=== PATIENT | male | born 1965 ===

== ENCOUNTER 2018-11-18 11:58 | Emergency (ER) | payer OTHER ==
[2018-11-18] MEDS: fentaNYL (PF) 50 MCG/ML 2 ML AMP IVP PRN ×3 (12:11→14:47)
--- NOTE | 2018-11-18 12:29 | ED ---
General Adult HPI - General Chief complaint: Fall Stated complaint: Fall-[facility] Time Seen by Provider: 11/18/18 12:05 Source: patient, EMS, RN notes reviewed, old records reviewed Mode of arrival: EMS Limitations: physical limitation - History of Present Illness Initial comments: 53-year-old male presents status post fall with head injury and mid back injury. Patient was in a elevated left, approximately 12 feet off the ground, fell striking his mid back and head. There was no loss consciousness. His main complaint is mid upper back pain. Denies anterior or substernal chest pain. Denies abdominal pain. He did denies any pain or decreased sensation in the lower extremities. Denies significant headache. He has no past medical history, not on any anticoagulation. - Related Data Home Medications Medication Instructions Recorded Confirmed No Known Home Medications 11/18/18 11/18/18 Allergies Allergy/AdvReac Type Severity Reaction Status Date / Time No Known Allergies Allergy Verified 11/18/18 14:03 Review of Systems ROS Statement: Those systems with pertinent positive or pertinent negative responses have been documented in the HPI. ROS Other: All systems not noted in ROS Statement are negative. Past Medical History History of Any Multi-Drug Resistant Organisms: None Reported Past Psychological History: No Psychological Hx Reported Smoking Status: Never smoker Past Alcohol Use History: None Reported Past Drug Use History: None Reported General Exam Limitations: physical limitation General appearance: alert, in no apparent distress Head exam: Absent: atraumatic Eye exam: Present: normal appearance, PERRL ENT exam: Present: normal exam Neck exam: Present: other (Cervical collar in place) Respiratory exam: Present: normal lung sounds bilaterally, chest wall tenderness (Posterior left sided thoracic tenderness to palpation.). Absent: respiratory distress Cardiovascular Exam: Present: regular rate, normal rhythm GI/Abdominal exam: Present: soft. Absent: distended, tenderness, guarding Extremities exam: Present: normal inspection, normal capillary refill. Absent: tenderness, pedal edema, joint swelling Back exam: Present: paraspinal tenderness, vertebral tenderness (6 spine, tenderness to palpation both paraspinal and spinal.) Neurological exam: Present: alert, oriented X3, CN II-XII intact. Absent: motor sensory deficit Psychiatric exam: Present: normal affect, normal mood Skin exam: Present: warm, dry. Absent: cyanosis, diaphoretic, erythema Course Vital Signs 0611/18/18 11/18/18 12:01 12:30 14:34 Temperature 98.7 F 98.5 F Pulse Rate 70 58 L 86 Respiratory 19 18 16 Rate Blood Pressure 137/94 131/90 131/88 O2 Sat by Pulse 94 L 94 L 97 Oximetry EKG Findings - EKG Comments: EKG Findings:: EKG: Normal sinus rhythm, poor baseline with artifact, no definitive signs of ischemia, rate of 65, UT interval 132, QRS duration 80, QTC 444, no ST segment elevation. Procedures - Laceration Laceration #1 Consent Obtained: verbal consent Indication: laceration Site: scalp Description: linear Pre-repair: wound explored, irrigated extensively Type of Sutures: other (Carie) Number of Sutures: 6 Technique: simple, interrupted Patient Tolerated Procedure: well Medical Decision Making - Medical Decision Making 53-year-old male status post fall. Patient fell from approximately 12 feet. He was transported c-collar. His main complaint is mid back pain. He has tenderness palpation across the thoracic region both paraspinal and spinal. He has no neurologic deficits below this level. He has good bread dough mixer strength bilaterally, he is moving his feet symmetrically, normal sensation. He is maintained in a c-collar. He is taken immediately to computed tomography scan for CT of brain and C-spine as well as CT chest and pelvis. This was obtained after preliminary single view chest and pelvis. Head CT negative for intracranial hemorrhage. CT cervical spine is negative for fracture s ubluxation. Spinal CT at the thoracic level shows compression fractures T5 6 and T11 as well as transverse process fractures at this level. He has both nondisplaced and displaced rib fractures with underlying bilateral pulmonary contusion. Ribs 2 through 6 on the left. No pneumothorax. Left mid clavicular fracture. Contusion is quite significant and CHEST CT. Patient does have a nondisplaced bilateral scapular fractures. Case is discussed with trauma surgeon Dr. Brenner, we did decide at this time patient is appropriate for transfer for higher level of care. Will require monitored bed or ICU. Will require bolus trauma and spinal surgery evaluation. Case discussed with Dr. Herminia Mcclendon, will accept transfer. - Lab Data Result diagrams: 11/18/18 12:21 11/18/18 12:21 Lab Results 11/18/18 11/18/18 11/18/18 Range/Units 12:19 12:21 12:21 WBC 12.9 H (3.8-10.6) k/uL RBC 5.03 (4.30-5.90) m/uL Hgb 14.8 (13.0-17.5) gm/dL Hct 45.3 (39.0-53.0) % MCV 90.1 (80.0-100.0) fL MCH 29.5 (25.0-35.0) pg MCHC 32.7 (31.0-37.0) g/dL RDW 12.7 (11.5-15.5) % Plt Count 379 (150-450) k/uL Neutrophils % 69 % Lymphocytes % 24 % Monocytes % 5 % Eosinophils % 0 % Basophils % 0 % Neutrophils # 9.0 H (1.3-7.7) k/uL Lymphocytes # 3.1 (1.0-4.8) k/uL Monocytes # 0.6 (0-1.0) k/uL Eosinophils # 0.1 (0-0.7) k/uL Basophils # 0.0 (0-0.2) k/uL PT (9.0-12.0) sec INR (<1.2) APTT (22.0-30.0) sec Sodium 141 (137-145) mmol/L Potassium 4.3 (3.5-5.1) mmol/L Chloride 107 (98-107) mmol/L Carbon Dioxide 24 (22-30) mmol/L Anion Gap 10 mmol/L BUN 18 (9-20) mg/dL Creatinine 0.82 (0.66-1.25) mg/dL Est GFR (CKD-EPI)AfAm >90 (>60 ml/min/1.73 sqM) Est GFR (CKD-EPI)NonAf >90 (>60 ml/min/1.73 sqM) Glucose 129 H (74-99) mg/dL Calcium 9.4 (8.4-10.2) mg/dL Total Bilirubin 0.5 (0.2-1.3) mg/dL AST 52 (17-59) U/L ALT 40 (21-72) U/L Alkaline Phosphatase 85 (38-126) U/L Total Protein 7.3 (6.3-8.2) g/dL Albumin 4.4 (3.5-5.0) g/dL Serum Alcohol mg/dL Blood Type Blood Type Confirm A Positive Blood Type Recheck Antibody Screen Spec Expiration Date 11/18/18 11/18/18 11/18/18 Range/Units 12:21 12:21 13:29 WBC (3.8-10.6) k/uL RBC (4.30-5.90) m/uL Hgb (13.0-17.5) gm/dL Hct (39.0-53.0) % MCV (80.0-100.0) fL MCH (25.0-35.0) pg MCHC (31.0-37.0) g/dL RDW (11.5-15.5) % Plt Count (150-450) k/uL Neutrophils % % Lymphocytes % % Monocytes % % Eosinophils % % Basophils % % Neutrophils # (1.3-7.7) k/uL Lymphocytes # (1.0-4.8) k/uL Monocytes # (0-1.0) k/uL Eosinophils # (0-0.7) k/uL Basophils # (0-0.2) k/uL PT 9.7 (9.0-12.0) sec INR 0.9 (<1.2) APTT 21.1 L (22.0-30.0) sec Sodium (137-145) mmol/L Potassium (3.5-5.1) mmol/L Chloride (98-107) mmol/L Carbon Dioxide (22-30) mmol/L Anion Gap mmol/L BUN (9-20) mg/dL Creatinine (0.66-1.25) mg/dL Est GFR (CKD-EPI)AfAm (>60 ml/min/1.73 sqM) Est GFR (CKD-EPI)NonAf (>60 ml/min/1.73 sqM) Glucose (74-99) mg/dL Calcium (8.4-10.2) mg/dL Total Bilirubin (0.2-1.3) mg/dL AST (17-59) U/L ALT (21-72) U/L Alkaline Phosphatase (38-126) U/L Total Protein (6.3-8.2) g/dL Albumin (3.5-5.0) g/dL Serum Alcohol <10 mg/dL Blood Type A Positive Blood Type Confirm Blood Type Recheck CABO Indicated Antibody Screen NEGATIVE Spec Expiration Date 11/21/2018 - 4616 Critical Care Time Critical Care Time: Yes Total Critical Care Time: 45 Disposition Clinical Impression: Fall, Fracture, ribs, Thoracic spine fracture, Scapular fracture, Pulmonary contusion, Scalp laceration Disposition: OTHER INSTITUTION NOT DEFINED Condition: Serious Is patient prescribed a controlled substance at d/c from ED?: No Referrals: None,Stated [Primary Care Provider] - 1-2 days Time of Disposition: 14:17 - Out of Hospital Transfer - Req. Specs Out of Hospital Transfer - Requested Specifics: Other Emergency Center (Transferred to [facility])
[2018-11-18] MEDS ORDERED: DIPH,PERTUS(ACELL)TETVAC-LF 0.5 ML VIAL IM ONE (12:33)
[2018-11-18 12:36] LABS: Basophils % (A) 0 %; Eosinophils # (A) 0.1 k/uL (0-0.7); Eosinophils % (A) 0 %; HCT 45.3 % (39.0-53.0); HGB 14.8 gm/dL (13.0-17.5); Lymphocytes # (A) 3.1 k/uL (1.0-4.8); Lymphocytes % (A) 24 %; MCH 29.5 pg (25.0-35.0); MCHC 32.7 g/dL (31.0-37.0); MCV 90.1 fL (80.0-100.0); Mean Platelet Volume 7.1; Monocytes # (A) 0.6 k/uL (0-1.0); Monocytes % (A) 5 %; Neutrophils % (A) 69 %; Platelet Count 379 k/uL (150-450); RBC 5.03 m/uL (4.30-5.90); RDW 12.7 % (11.5-15.5); WBC 12.9 k/uL (3.8-10.6)
[2018-11-18 12:55] LABS: ALT 40 U/L (21-72); AST 52 U/L (17-59); African American GFR (CKD) >90 (>60 ml/min/1.73 sqM); Albumin 4.4 g/dL (3.5-5.0); Alkaline Phosphatase 85 U/L (38-126); Anion Gap 10 mmol/L; Blood Urea Nitrogen 18 mg/dL (9-20); Calcium 9.4 mg/dL (8.4-10.2); Carbon Dioxide 24 mmol/L (22-30); Chloride 107 mmol/L (98-107); Glucose 129 mg/dL (74-99); INR 0.9 (<1.2); Prothrombin Time 9.7 sec (9.0-12.0); Sodium 141 mmol/L (137-145); Total Bilirubin 0.5 mg/dL (0.2-1.3); Total Protein 7.3 g/dL (6.3-8.2)
[2018-11-18 12:59] LABS: Potassium 4.3 mmol/L (3.5-5.1)
[2018-11-18 13:00] LABS: Partial Thromboplastin Time 21.1 sec (22.0-30.0)
--- NOTE | 2018-11-18 13:10 | CT ---
EXAMINATION TYPE: CT brain man alcaraz DATE OF EXAM: 11/18/2018 COMPARISON: None HISTORY: 8 foot fall, posterior head injury and back injury. CT DLP: [address] of the brain was performed. The ventricles, basal cisterns and sulci overlying the cerebral convexities demonstrate enlargement. There is no evidence for intracranial hemorrhage or sulcal effacement. There is decreased attenuatio n about the periventricular white matter and deep white matter of both cerebral hemispheres, compatib le with chronic small vessel ischemia. No mass effects are seen. If symptoms persist consider MRI. Osseous calvarium is intact. IMPRESSION: 1. Age related atrophic and chronic small vessel ischemic change without acute intracranial process seen at this time. CT Cervical Spine: Unenhanced CT of the cervical spine was performed with bone and soft tissue window settings submitted . Coronal and sagittal reconstruction is obtained. There is normal alignment and prevertebral soft tissues. No evidence for acute cervical fracture . Scattered degenerative disc disease and spondylosis. Biapical scarring. IMPRESSION: 1. No evidence for acute fracture or subluxation of the cervical spine.
--- NOTE | 2018-11-18 13:17 | XR ---
EXAMINATION TYPE: XR chest 1V portable DATE OF EXAM: 11/18/2018 Comparison: None Clinical History: trauma Findings: Fractures with variable displacement of the one shafts width of the left lateral second through sixth ribs. Heart border line enlarged. Diffuse interstitial and patchy densities throughout the lungs. No pneumothorax or pleural effusion seen. Mildly displaced left midclavicular shaft fracture. Impression: 1. Variably displaced fractures of the left lateral second through sixth ribs with displacement of up to 1 shaft's width. 2. Mildly displaced left midclavicular shaft fracture. 3. Diffuse interstitial and patchy airspace opacities throughout the lungs. Correlate for possible et iologies such as noncardiogenic pulmonary edema, diffuse aspiration, diffuse pulmonary contusions.
--- NOTE | 2018-11-18 13:18 | XR ---
EXAMINATION TYPE: XR pelvis AP view DATE OF EXAM: 11/18/2018 COMPARISON: NONE HISTORY: 53-year-old male trauma and pain after fall FINDINGS: SI joints appear symmetric and intact as does the pubic symphysis. No acute fracture, subluxation, or dislocation seen. Bilateral L5 pars defects seen on CT of the same day. IMPRESSION: Bilateral L5 pars defect seen on CT of the same day. Otherwise, no acute osseous abnormality seen.
--- NOTE | 2018-11-18 13:24 | CT ---
EXAMINATION TYPE: CT ChestAbdPelvis w con DATE OF EXAM: 11/18/2018 COMPARISON: None HISTORY: 8 foot fall, posterior head injury and back injury. CT DLP: 603.7 mGycm CONTRAST: Contrast enhanced Trauma CT of the Chest, Abdomen and Pelvis is performed with IV Contrast, patient i njected with 100 mL of Isovue 300. Chest: LUNGS: There is no evidence for pneumothorax. Groundglass infiltrates are seen throughout both lung f ields which could reflect early contusive change. MEDIASTINUM: Thoracic aorta is of normal caliber w ithout CT evidence to suggest traumatic induced aortic injury. No mediastinal fluid or blood. No pe ricardial fluid or cardia abnormality. HILAR STRUCTURES: No evidence for mass. No hilar adenopathy is appreciated. OTHER: No significant abnormality. OSSEOUS: Fractures of the lateral rib 2. Mildly comminuted fractures of left ribs 3, 4, 5 and 6 later ally. Virtually nondisplaced fracture right rib #5. Adjacent pleural thickening. Left scapular fractu re noted involving its body. Fracture of the right scapular body as well. Please see separate thoraci c spine report. CT ABDOMEN AND PELVIS FINDINGS: LIVER/GB: No focal laceration, contusion or subcapsular hemorrhage. No calcified gallstones. No s pace occupying hepatic lesion. Biliary tree is of normal caliber. PANCREAS: No evidence for transection. No inflammation. No distinct mass. SPLEEN: No focal laceration, contusion or subcapsular hemorrhage. ADRENALS: No hemorrhage. No nodule. No thickening. KIDNEYS/BLADDER: No focal laceration, contusion or subcapsular hemorrhage. No hydronephrosis. No n ephrolithiasis. No distinct renal mass. BOWEL: Bowel is intact. No evidence for pneumoperitoneum. GENITAL ORGANS: No gross abnormality. LYMPH NODES: No greater than 1cm abdominal or pelvic lymph nodes areappreciated. AORTA: No traumatic aortic injury visualized. OSSEOUS STRUCTURES: No displaced fracture seen. OTHER: No evidence for hemoperitoneum. IMPRESSION: 1. Multiple left-sided rib fractures extending from left rib #2 through 6 with associated pleural thi ckening. Fracture right rib #5. No pneumothorax at this time. Scattered groundglass infiltrates may r eflect developing contusion. Can also be seen with the poor inspiration. 2. Bilateral scapular body fractures. 2. No evidence for traumatic injury to the abdomen or pelvis.
--- NOTE | 2018-11-18 13:31 | CT ---
EXAMINATION TYPE: CT thoracic spine w con DATE OF EXAM: 11/18/2018 COMPARISON: None HISTORY: 8 foot fall, posterior head injury and back injury. CT DLP: 603.7 mGycm CONTRAST: Unenhanced CT of the thoracic spine is performed with IV Contrast, patient injected with 100 mL of Is ovue 300. Contrast-enhanced CT of the thoracic spine was performed. Bone and soft tissue window settings are s ubmitted as well as coronal and sagittal reconstructions. There are very mild superior endplate compression fractures of T5 and T6. Slightly more prominent sup erior endplate compression fractures noted at T11 with mild vertebral body comminution loss of height is estimated at 25%. There is no evidence for bony retropulsion or involvement of the posterior colu mn. Virtually nondisplaced fractures of the transverse processes 4 , 5 and 6 on the left. IMPRESSION: 1. Mild stable compression fractures of T5, T6 and T11 as discussed above. No bony retropulsion. Huber sverse process fractures on the left noted as well.
[2018-11-18 14:35] VITALS: BP 131/88; PULSE 86; RESP 16; TEMP 98.5
== END 2018-11-18 15:07 | disposition other institution (70) ==
LOC: EC 11:58
DX: S22.050A Wedge compression fracture of T5-T6 vertebra, initial encounter for closed fracture (principal); S22.080A Wedge compression fracture of T11-T12 vertebra, initial encounter for closed fracture; S22.42XA Multiple fractures of ribs, left side, initial encounter for closed fracture; S42.002A Fracture of unspecified part of left clavicle, initial encounter for closed fracture; S42.102A Fracture of unspecified part of scapula, left shoulder, initial encounter for closed fracture; S42.101A Fracture of unspecified part of scapula, right shoulder, initial encounter for closed fracture; S27.322A Contusion of lung, bilateral, initial encounter; Z53.29 Procedure and treatment not carried out because of patient's decision for other reasons; W17.89XA Other fall from one level to another, initial encounter; Y92.69 Other specified industrial and construction area as the place of occurrence of the external cause; Y99.0 Civilian activity done for income or pay
CPT/HCPCS: 36415; 93005; 86900; 86901; 80053; 85025; 85610; 85730; 86850; 80320; 72170; 71045; 72129; 72125; 70450; 71260; 74177; 99291; 96374; J3010; Q9967

== ENCOUNTER → 2019-05-03 | Outpatient (CLI) | payer OTHER ==
--- NOTE | 2019-05-03 15:36 | FL ---
EXAMINATION TYPE: FL arthrogram shoulder LT DATE OF EXAM: 05/03/2019 COMPARISON: NONE HISTORY: Pain 4 min 54 sec fl time used left shoulder One image submitted Preliminary views of the left shoulder are submitted which demonstrate left clavicular and left-sided rib fractures. Patient also has history of left scapular fracture. Informed consent was obtained and all the patient's questions were answered. The standard sterile edwige hnique was utilized as well as appropriate local anesthesia with 1% lidocaine. Under fluoroscopic raymond dance approximately 12 cc of a mixture of gadolinium 0.04 mL, Omnipaque 300 in the amount of 5 cc, 10 cc normal saline and 4 cc lidocaine was injected. The patient tolerated the procedure well and left the department in stable condition. IMPRESSION: 1. Successful pre-MRI arthrogram of the left shoulder
--- NOTE | 2019-05-17 14:52 | MR ---
EXAMINATION TYPE: MR arthrogram left shoulder DATE OF EXAM: 05/03/2019 COMPARISON: Arthrogram injection 05/03/2019 HISTORY: 53-year-old male with left shoulder pain, shoulder arthrogram, labral tear TECHNIQUE: Multiplanar, multisequence images of the left shoulder is performed after intra-articular injection of a gadolinium mixture. Please refer to arthrogram injection report of the same day for fu rther details. FINDINGS: The long head biceps tendon is thickened but remains intact and appropriate exaggerated along the bic ipital groove. Intrasubstance signal is present with a long intracapsular portion compatible with ten dinosis. There is thickening of the axillary recess with edematous change and corresponding thickening of the coracohumeral ligament at 4 mm. Diffuse heterogeneity and thickening of the subscapularis tendon. No significant tear of the subscapu jame tendon. Moderate degenerative joint space narrowing with marginal spurring at the acromioclavicular joint. Sp urring mildly encroaches onto the subacromial space. Marked diffuse heterogeneity of both supraspinatus and infraspinatus tendons with thickening and inho mogeneous signal throughout. The anterior infraspinatus tendon shows shallow bursal sided tear measuring 1 cm AP and 9 mm long pro ximal to the insertion, located just lateral to the acromion. There is a 1.1 x 1.3 cm large intrasubstance tear involving the anterior to mid supraspinatus tendon (coronal image 11 and sagittal image 6). Possible articular surface communication. The coronal T1 FS image shows trace contrast having made its way into the subdeltoid bursa. Tiny bursal sided communica tion is also difficult to exclude given this finding. The superior labrum is markedly degenerative and blunted. No paralabral cyst. The glenohumeral joint is intact. No Hill-Sachs deformity or os acromiale. Preserved rotator cuff muscle bulk. IMPRESSION: 1. Marked diffuse rotator cuff tendinosis. Intrasubstance, possible rim rent tear of the anterior to mid infraspinatus tendon (1.3 x 1.1 cm). Given trace contrast having made its way into the subdeltoid bursa, a small bursal sided communication is difficult to exclude. 2. Shallow bursal sided tear of the anterior infraspinatus tendon (10 x 9 mm) located proximal to the footprint, just lateral to the acromion. 3. Markedly degenerative and blunted superior labrum. 4. Thickened coracoacromial ligament and axillary recess/IGHL. Ligamentous sprains are possible. Kamara victor manuel, findings can also be seen in the setting of adhesive capsulitis and clinical correlation is ravindra mmended. 5. Moderate long head biceps tendinosis and moderate AC joint OA.
== END | disposition home or self-care (01) ==
LOC: RADFLMAIN 13:09
PROVIDERS: ATTEND Orthopaedic Surgery
DX: S43.402A Unspecified sprain of left shoulder joint, initial encounter (principal); M19.012 Primary osteoarthritis, left shoulder; S46.911A Strain of unspecified muscle, fascia and tendon at shoulder and upper arm level, right arm, initial encounter
CPT/HCPCS: 23350; 73040; 73222; J2001; A9585; Q9967

== ENCOUNTER 2020-10-21 18:51 | Emergency (ER) | payer OTHER ==
[2020-10-21 19:03] VITALS: BP 131/82; PULSE 71; RESP 18; TEMP 97.8
--- NOTE | 2020-10-21 19:32 | XR ---
EXAMINATION TYPE: XR ankle complete LT DATE OF EXAM: 10/21/2020 COMPARISON: NONE HISTORY: Pain TECHNIQUE: 3 views FINDINGS: There is nondisplaced fracture through the body of the calcaneus. The talus appears intact. Ankle mortise is anatomic. IMPRESSION: Nondisplaced calcaneus fracture.
--- NOTE | 2020-10-21 19:54 | ED ---
Lower Extremity Injury HPI - General Chief Complaint: Extremity Injury, Lower Stated Complaint: Lt Foot Injury Time Seen by Provider: 10/21/20 19:05 Source: patient, RN notes reviewed Mode of arrival: ambulatory Limitations: no limitations - History of Present Illness Initial Comments: Patient is a 55-year-old male that presents to the emergency department with left ankle pain. He noted to standing on a 4 foot ladder when he lost his balance and fell. She notes that he can't put any pressure on it this time. He denied any numbness tingling decreased sensation in his foot. He notes a does have full range of motion is just painful on dorsiflexion. Patient was in no apparent distress or pain, stated that his pain was approximately a 3 out of 10 and declined the need for any pain medication this time. He denied any chest pain shortness breath headache nausea vomiting diarrhea constipation fever fatigue chills decreased range of motion weakness numbness tingling in his left lower extremity. - Related Data Home Medications Medication Instructions Recorded Confirmed No Known Home Medications 11/18/18 11/18/18 Allergies Allergy/AdvReac Type Severity Reaction Status Date / Time No Known Allergies Allergy Verified 10/21/20 19:04 Review of Systems ROS Statement: Those systems with pertinent positive or pertinent negative responses have been documented in the HPI. ROS Other: All systems not noted in ROS Statement are negative. Past Medical History Past Medical History: No Reported History History of Any Multi-Drug Resistant Organisms: None Reported Past Surgical History: No Surgical Hx Reported Past Psychological History: No Psychological Hx Reported Smoking Status: Never smoker Past Alcohol Use History: None Reported Past Drug Use History: None Reported General Exam Limitations: no limitations General appearance: alert, in no apparent distress Head exam: Present: atraumatic, normocephalic, normal inspection Eye exam: Present: normal appearance, PERRL, EOMI. Absent: scleral icterus, conjunctival injection, periorbital swelling Neck exam: Present: normal inspection. Absent: tenderness, meningismus, lymphadenopathy Respiratory exam: Present: normal lung sounds bilaterally. Absent: respiratory distress, wheezes, rales, rhonchi, stridor Cardiovascular Exam: Present: regular rate, normal rhythm, normal heart sounds. Absent: systolic murmur, diastolic murmur, rubs, gallop, clicks GI/Abdominal exam: Present: soft, normal bowel sounds. Absent: distended, tenderness, guarding, rebound, rigid Left Ankle exam: Present: normal inspection, full ROM, tenderness (Over the inferior lateral malleoli). Absent: swelling, abrasion, laceration, ecchymosis, deformity, crepitus, dislocation, erythema Neurological exam: Present: alert, oriented X3, CN II-XII intact Psychiatric exam: Present: normal affect, normal mood Skin exam: Present: warm, dry, intact, normal color. Absent: rash Course Vital Signs 10/21/20 19:00 Temperature 97.8 F Pulse Rate 71 Respiratory 18 Rate Blood Pressure 131/82 O2 Sat by Pulse 95 Oximetry Procedures - Orthopedic Splinting/Casting Injury #1 Side: left Lower Extremity Injury Location: ankle Lower Extremity Immobilizer: posterior splint (Bulky), Angel wrap, synthetic pre- padded splint Other Orthopedic Equipment: crutches Medical Decision Making - Medical Decision Making 55-year-old male complaining of left ankle pain after falling off a 4 foot ladder. Left x-ray ordered. Patient declined any pain medication this time. Patient declined bladder or bowel issues. Lumbar spine x-ray ordered due to calcaneal fracture on ankle x-ray. After talking with or so CT of the lumbar spine and left ankle ordered. Case discussed with Dr. Go, patient can discharge home with follow-up to orthopedics in the next day. - Radiology Data Radiology results: report reviewed, image reviewed Left ankle x-ray: Nondisplaced calcaneus fracture. Lumbar spine x-ray: T11 compression fracture is probably an acute fracture. Left ankle CT: Nondisplaced acute comminuted fracture of the body of the calcaneus. There is a nondisplaced oblique fracture through the body of the calcaneus. Fracture extends to the posterior calcaneus and anteriorly to the subtalar joint. Ankle more to same time. Distal tibia and femur appear intact. The talus appears intact. Some toe joint appears anatomic. Calcaneus fracture is comminuted. Lumbar spine CT: T11 old compression fracture without change compared to old exam. No acute fracture seen. Stable first-degree L5 to S1 spondylolisthesis. Disposition Clinical Impression: Left calcaneal fracture Disposition: HOME SELF-CARE Condition: Stable Instructions (If sedation given, give patient instructions): Calcaneal Fracture (ED) Additional Instructions: Please return to the Emergency Department if symptoms worsen or any other concerns. Follow-up with orthopedics tomorrow. Take Tylenol Motrin as needed for pain. Rest elevate leg. Is patient prescribed a controlled substance at d/c from ED?: No Referrals: None,Stated [Primary Care Provider] - 1-2 days Candi Kim DO [Doctor of Osteopathic Medicine] - 1-2 days Time of Disposition: 21:28
--- NOTE | 2020-10-21 20:19 | XR ---
EXAMINATION TYPE: XR lumbar spine 2 or 3V DATE OF EXAM: 10/21/2020 COMPARISON: NONE HISTORY: Pain TECHNIQUE: 3 views FINDINGS: I see no fracture nor dislocation. There is L5 spondylolysis with first-degree L5-S1 spondy lolisthesis. There is no compression fracture in the lumbar spine. There is T11 anterior wedging 25%. This is probably an acute fracture. IMPRESSION: T11 compression fracture is probably an acute fracture.
--- NOTE | 2020-10-21 21:01 | CT ---
EXAMINATION TYPE: CT lumbar spine wo con DATE OF EXAM: 10/21/2020 COMPARISON: 01/18/2019 HISTORY: Fall from ladder, back pain. CT DLP: 820 mGycm Automated exposure control for dose reduction was used. Images obtained from the level of T11-S3 vertebra with no contrast. 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 There is developmentally ad equate spinal canal. There is no spinal stenosis. The lumbar vertebra show no compression fracture. T he upper sacrum is intact. There is no lumbar paraspinal mass. There is 25% anterior wedging of the T11 vertebral body with depression of the superior endplate. Thi s appears stable compared to old exam. There is no significant fragment posterior extension. Sacroili ac joints appear intact. IMPRESSION: T11 old compression fracture without change compared to old exam. No acute fracture seen. Stable firs t-degree L5-S1 spondylolisthesis.
--- NOTE | 2020-10-21 21:10 | CT ---
Left ankle CT scan. History fall. Pain. Comparison none. FINDINGS: Images were obtained from the mid tibia to the bottom of the calcaneus with no contrast. There is nondisplaced oblique fracture through the body of the calcaneus. Fracture extends to the pos terior calcaneus and anteriorly to the subtalar joint. Ankle mortise is anatomic. Distal tibia and fi bula appear intact. The talus appears intact. Subtalar joint appears anatomic. Calcaneus fracture is comminuted. IMPRESSION: Nondisplaced acute comminuted fracture of the body of the calcaneus.
== END 2020-10-21 21:40 | disposition home or self-care (01) ==
LOC: EC 18:51
DX: S92.025A Nondisplaced fracture of anterior process of left calcaneus, initial encounter for closed fracture (principal); W19.XXXA Unspecified fall, initial encounter; Y93.61 Activity, american tackle football
CPT/HCPCS: 29515; 72100; 72131; 99284